=== PATIENT | male | born 1995 | race Caucasian/White ===

== ENCOUNTER 2018-09-21 08:19 | Day surgery (SDC) | payer OTHER, BC ==
[2018-09-21] MEDS ORDERED: Sodium Chloride 0.9% 10 ML Syringe FLUSH PRN (08:36)
[2018-09-21] MEDS ORDERED: Morphine 10 MG/ML Syringe IM ONE (08:36)
[2018-09-21] MEDS ORDERED: Sodium Chloride 0.9% 1,000 ML IV ONE (08:36)
[2018-09-21] MEDS ORDERED: Ondansetron 4 MG/2 ML SDV IVPUSH ONE ×2 (08:36→09:52)
[2018-09-21] MEDS ORDERED: Sodium Chloride 0.9% 2.5 ML Syringe FLUSH PRN (08:36)
--- NOTE | 2018-09-21 08:37 | EDM.PDOC ---
ED HPI GENERAL MEDICAL PROBLEM - General Chief Complaint: Abdominal Pain Stated Complaint: STOMACH PAIN Time Seen by Provider: 09/21/18 08:25 Source of Information: Reports: Patient History Limitations: Reports: No Limitations - History of Present Illness INITIAL COMMENTS - FREE TEXT/NARRATIVE: History of present illness: []Patient started having abdominal pain yesterday with nausea and vomiting. Pain is worsening and localized to his right side. He ate heavily and late last night and thought that it is his diet. He has had his gallbladder removed in the past. He denies any fevers or chills at this time. Review of systems: As per history of present illness and below otherwise all systems reviewed and negative. Past medical history: As per history of present illness and as reviewed below otherwise noncontributory. Surgical history: As per history of present illness and as reviewed below otherwise noncontributory. Social history: No reported history of drug or alcohol abuse. Family history: As per history of present illness and as reviewed below otherwise noncontributory. Physical exam: General: Well developed, well nourished in NAD HEENT: Atraumatic, normocephalic, pupils reactive, negative for conjunctival pallor or scleral icterus, mucous membranes moist, throat clear, neck supple, nontender, trachea midline. Lungs: Clear to auscultation, breath sounds equal bilaterally, chest nontender. Heart: S1S2, regular, negative for clicks, rubs, or JVD. Abdomen: NABS, Soft, nondistended, tender in right lower quadrant with rebound. Negative for masses or hepatosplenomegaly. Negative for costovertebral tenderness. Pelvis: Stable nontender. Genitourinary: Deferred. Rectal: Deferred. Extremities: Atraumatic, negative for cords or calf pain. Neurovascular unremarkable. Neuro: Awake, alert, oriented. Cranial nerves II through XII unremarkable. Cerebellum unremarkable. Motor and sensory unremarkable throughout. Exam nonfocal. Skin:warm and dry Diagnostics: CBC, chemistry, lipase, CT abdomen and pelvis Therapeutics: IV fluids, morphine, Zofran for pain, Zosyn ED Course: Patient remained stable with improvement in pain after medication Impression: Acute appendicitis Prescriptions: Plan: Admit to the OR to Dr. Michaels Definitive disposition and diagnosis as appropriate pending reevaluation and review of above. - Related Data Allergies Allergy/AdvReac Type Severity Reaction Status Date / Time No Known Allergies Allergy Verified 09/21/18 08:32 Home Meds: Home Meds . [No Known Home Meds] 09/21/18 [History] ED ROS GENERAL - Review of Systems Review Of Systems: ROS reveals no pertinent complaints other than HPI. ED EXAM, GI/ABD - Physical Exam Exam: See Below (See history of present illness) Course - Vital Signs Last Recorded V/S: Last Vital Signs Temp 96.7 F 09/21/18 08:30 Pulse 81 09/21/18 08:30 Resp 18 09/21/18 08:30 BP 135/80 09/21/18 08:30 Pulse Ox 99 09/21/18 08:30 - Orders/Labs/Meds Orders: Active Orders 24 hr Category Date Time Status Lactated Ringers [Ringers, Lactated] 1,000 ml Med 09/21/18 11:03 Active IV .BOLUS Sodium Chloride 0.9% [Saline Flush] Med 09/21/18 08:36 Active 10 ml FLUSH ASDIRECTED PRN Sodium Chloride 0.9% [Saline Flush] Med 09/21/18 08:36 Active 2.5 ml FLUSH ASDIRECTED PRN Saline Lock Insert [OM.PC] Stat Oth 09/21/18 08:35 Ordered Medication Orders Lactated Ringer's (Ringers, Lactated) 1,000 mls @ 999 mls/hr IV .BOLUS ONE Stop: 09/21/18 12:03 Last Admin: 09/21/18 11:30 Dose: 999 mls/hr Sodium Chloride (Saline Flush) 10 ml FLUSH ASDIRECTED PRN PRN Reason: Keep Vein Open Last Admin: 09/21/18 09:07 Dose: 10 ml Sodium Chloride (Saline Flush) 2.5 ml FLUSH ASDIRECTED PRN PRN Reason: Keep Vein Open Last Admin: 09/21/18 09:07 Dose: 2.5 ml Labs: Laboratory Tests 09/21/18 09/21/18 Range/Units 08:55 08:55 WBC 14.71 H (4.0-11.0) K/uL RBC 5.63 (4.50-5.90) M/uL Hgb 16.0 (13.0-17.0) g/dL Hct 44.9 (38.0-50.0) % MCV 79.8 L (80.0-98.0) fL MCH 28.4 (27.0-32.0) pg MCHC 35.6 (31.0-37.0) g/dL RDW Std Deviation 38.9 (28.0-62.0) fl RDW Coeff of Ernesto 14 (11.0-15.0) % Plt Count 337 (150-400) K/uL MPV 9.90 (7.40-12.00) fL Neut % (Auto) 80.4 H (48.0-80.0) % Lymph % (Auto) 13.7 L (16.0-40.0) % [place] % (Auto) 4.9 (0.0-15.0) % Eos % (Auto) 0.7 (0.0-7.0) % Baso % (Auto) 0.3 (0.0-1.5) % Neut # (Auto) 11.8 H (1.4-5.7) K/uL Lymph # (Auto) 2.0 (0.6-2.4) K/uL [place] # (Auto) 0.7 (0.0-0.8) K/uL Eos # (Auto) 0.1 (0.0-0.7) K/uL Baso # (Auto) 0.0 (0.0-0.1) K/uL Nucleated RBC % 0.0 /100WBC Nucleated RBCs # 0 K/uL Sodium 141 (136-148) mmol/L Potassium 4.2 (3.5-5.1) mmol/L Chloride 104 (98-107) mmol/L Carbon Dioxide 26.2 (21.0-32.0) mmol/L BUN 12 (7.0-18.0) mg/dL Creatinine 1.1 (0.8-1.3) mg/dL Est Cr Clr Drug Dosing 113.66 mL/min Estimated GFR (MDRD) > 60.0 ml/min Glucose 112 H (74-106) mg/dL Calcium 9.4 (8.5-10.1) mg/dL Total Bilirubin 1.1 H (0.2-1.0) mg/dL AST 22 (15-37) IU/L ALT 43 (14-63) IU/L Alkaline Phosphatase 41 L (46-116) U/L Total Protein 8.4 H (6.4-8.2) g/dL Albumin 4.3 (3.4-5.0) g/dL Globulin 4.1 H (2.6-4.0) g/dL Albumin/Globulin Ratio 1.1 (0.9-1.6) Lipase 85 (73-393) U/L Meds: Medications Generic Name Dose Route Start Last Admin Trade Name Freq PRN Reason Stop Dose Admin Lactated Ringer's 1,000 mls @ 999 mls/hr 09/21/18 11:03 09/21/18 11:30 Ringers, Lactated IV 09/21/18 12:03 999 mls/hr .BOLUS ONE Administration Sodium Chloride 10 ml 09/21/18 08:36 09/21/18 09:07 Saline Flush FLUSH 10 ml ASDIRECTED PRN Administration Keep Vein Open Sodium Chloride 2.5 ml 09/21/18 08:36 09/21/18 09:07 Saline Flush FLUSH 2.5 ml ASDIRECTED PRN Administration Keep Vein Open Discontinued Medications Generic Name Dose Route Start Last Admin Trade Name Freq PRN Reason Stop Dose Admin Hydromorphone HCl 0.5 mg 09/21/18 09:51 09/21/18 09:58 Dilaudid IVPUSH 09/21/18 09:52 0.5 mg ONETIME ONE Administration Sodium Chloride 1,000 mls @ 999 mls/hr 09/21/18 08:36 09/21/18 08:51 Normal Saline IV 09/21/18 09:36 999 mls/hr .Bolus ONE Administration Piperacillin Sod/Tazobactam 50 mls @ 100 mls/hr 09/21/18 11:02 09/21/18 11:30 Sod 3.375 gm/ Sodium Chloride IV 09/21/18 11:31 100 mls/hr ONETIME ONE Administration Iopamidol 100 ml 09/21/18 10:38 09/21/18 10:39 Isovue Multipack-370 (76%) IVPUSH 09/21/18 10:39 100 ml ONETIME ONE Administration Metoclopramide HCl 10 mg 09/21/18 09:25 09/21/18 10:28 Reglan IV 09/21/18 09:26 Not Given ONETIME ONE Morphine Sulfate 6 mg 09/21/18 08:36 09/21/18 08:51 Morphine IM 09/21/18 08:37 6 mg ONETIME ONE Administration Ondansetron HCl 4 mg 09/21/18 08:36 09/21/18 08:51 Zofran IVPUSH 09/21/18 08:37 4 mg ONETIME ONE Administration Ondansetron HCl 4 mg 09/21/18 09:52 09/21/18 09:58 Zofran IVPUSH 09/21/18 09:53 4 mg ONETIME ONE Administration Departure - Departure Time of Disposition: 11:43 Disposition: Home, Self-Care 01 Condition: Good Clinical Impression: Acute appendicitis Qualifiers: Acute appendicitis type: with localized peritonitis Appendicitis gangrene presence: without gangrene Appendicitis perforation presence: without perforation Appendicitis abscess presence: without abscess Qualified Code(s): K35.30 - Acute appendicitis with localized peritonitis, without perforation or gangrene - Discharge Information *PRESCRIPTION DRUG MONITORING PROGRAM REVIEWED*: No *COPY OF PRESCRIPTION DRUG MONITORING REPORT IN PATIENT FRANKIE: No - My Orders Last 24 Hours: My Active Orders 09/21/18 08:35 Saline Lock Insert [OM.PC] Stat 09/21/18 08:36 Sodium Chloride 0.9% [Saline Flush] 10 ml FLUSH ASDIRECTED PRN Sodium Chloride 0.9% [Saline Flush] 2.5 ml FLUSH ASDIRECTED PRN 09/21/18 11:03 Lactated Ringers [Ringers, Lactated] 1,000 ml IV .BOLUS - Assessment/Plan Last 24 Hours: My Active Orders 09/21/18 08:35 Saline Lock Insert [OM.PC] Stat 09/21/18 08:36 Sodium Chloride 0.9% [Saline Flush] 10 ml FLUSH ASDIRECTED PRN Sodium Chloride 0.9% [Saline Flush] 2.5 ml FLUSH ASDIRECTED PRN 09/21/18 11:03 Lactated Ringers [Ringers, Lactated] 1,000 ml IV .BOLUS
[2018-09-21] MEDS: Metoclopramide 10 MG/2 ML SDV IV ONE ×2 (09:32→10:28)
[2018-09-21 09:36] LABS: CHLORIDE,CL 104 mmol/L (98-107); SODIUM,NA 141 mmol/L (136-148)
[2018-09-21] MEDS ORDERED: HYDROmorphone 2 MG/ML Syringe IVPUSH ONE (09:51)
[2018-09-21] MEDS ORDERED: Iopamidol 755 MG/ML 500 ML Multipack Bottle IVPUSH ONE (10:38)
--- NOTE | 2018-09-21 10:58 | CT ---
CT of the abdomen and pelvis with contrast. HISTORY: Right lower quadrant pain TECHNIQUE: Axial CT images were obtained of the abdomen and pelvis following administration of 100 mL of Isovue-370 in the left antecubital fossa without complication. Coronal and sagittal reconstructions obtained. FINDINGS: The lung bases are clear, no pleural effusion. The liver, spleen, adrenal glands, and pancreas appear normal. Cholecystectomy clips are noted likely dilatation of a portion of the cystic duct. Common bile duct is normal in caliber. There is no bulky retroperitoneal lymphadenopathy or abdominal ascites. The kidneys enhance and function symmetrically without evidence of obstructive uropathy. The large and small bowel are normal in caliber without evidence of obstruction. No focal pericolonic inflammation or stranding. The appendix is enlarged measuring up to 11 mm with mild adjacent stranding. No evidence of perforation at this time. Urinary bladder is normal. No pelvic lymphadenopathy or free pelvic fluid. No suspicious osseous abnormalities identified. IMPRESSION: 1. Acute appendicitis without evidence of perforation. 2. Cholecystectomy with moderate prominence of the residual cystic duct
[2018-09-21] MEDS ORDERED: Piperacillin/Tazobactam 3.375 GM in Sodium Chloride 0.9% 50 ML IV ONE (11:02)
[2018-09-21] MEDS ORDERED: Lactated Ringers 1,000 ML IV ONE (11:03)
[2018-09-21] MEDS ORDERED: Midazolam 1 MG/ML 2 ML SDV ONE (11:44)
[2018-09-21] MEDS ORDERED: Lactated Ringers 1,000 ML IV SCH ×2 (11:45→14:15)
[2018-09-21] MEDS ORDERED: fentaNYL 100 MCG/2 ML SDV ONE ×2 (11:45→12:51)
[2018-09-21] MEDS ORDERED: Lidocaine 2% 100 MG/5 ML Syringe ONE (11:46)
[2018-09-21] MEDS ORDERED: Propofol 200 MG/20 ML SDV ONE (11:47)
[2018-09-21] MEDS ORDERED: Rocuronium 100 MG/10 ML Syringe ONE (11:48)
[2018-09-21] MEDS ORDERED: Scopolamine 1.5 MG Transdermal Patch TRDERM PRN (11:55)
[2018-09-21] MEDS ORDERED: HYDROmorphone 2 MG/ML SDV IVPUSH ONE ×2 (11:55→12:15)
[2018-09-21] MEDS ORDERED: Bupivacaine 0.25%/EPINEPHrine 1:200,000 10 ML SDV ONE (11:56)
--- NOTE | 2018-09-21 11:57 | PCM.PREANE ---
Preanesthetic Assessment - Anesthesia/Transfusion/Family Hx Anesthesia History: Prior Anesthesia Reaction Type of Anesthesia Reaction: Excessive Nausea/Vomiting Family History of Anesthesia Reaction: No - Review of Systems General: No Symptoms Pulmonary: No Symptoms Cardiovascular: No Symptoms Gastrointestinal: Abdominal Pain Neurological: No Symptoms Other: Reports: None - Physical Assessment NPO Status Date: 09/21/18 NPO Status Time: 07:00 O2 Sat by Pulse Oximetry: 96 Respiratory Rate: 18 Vital Signs: Last Vital Signs Temp 97.0 F 09/21/18 11:47 Pulse 64 09/21/18 11:47 Resp 18 09/21/18 11:47 BP 137/84 09/21/18 11:47 Pulse Ox 96 09/21/18 11:47 Height: 6 ft Weight: 111.13 kg ASA Class: 1E Mental Status: Alert & Oriented x3 Airway Class: Mallampati = 1 Dentition: Reports: Normal Dentition ROM/Head Extension: Full Lungs: Clear to Auscultation, Normal Respiratory Effort Cardiovascular: Regular Rate, Regular Rhythm - Lab Values: Laboratory Last Values WBC 14.71 K/uL (4.0-11.0) H 09/21/18 08:55 RBC 5.63 M/uL (4.50-5.90) 09/21/18 08:55 Hgb 16.0 g/dL (13.0-17.0) 09/21/18 08:55 Hct 44.9 % (38.0-50.0) 09/21/18 08:55 MCV 79.8 fL (80.0-98.0) L 09/21/18 08:55 MCH 28.4 pg (27.0-32.0) 09/21/18 08:55 MCHC 35.6 g/dL (31.0-37.0) 09/21/18 08:55 RDW Std Deviation 38.9 fl (28.0-62.0) 09/21/18 08:55 RDW Coeff of Ernesto 14 % (11.0-15.0) 09/21/18 08:55 Plt Count 337 K/uL (150-400) 09/21/18 08:55 MPV 9.90 fL (7.40-12.00) 09/21/18 08:55 Neut % (Auto) 80.4 % (48.0-80.0) H 09/21/18 08:55 Lymph % (Auto) 13.7 % (16.0-40.0) L 09/21/18 08:55 [place] % (Auto) 4.9 % (0.0-15.0) 09/21/18 08:55 Eos % (Auto) 0.7 % (0.0-7.0) 09/21/18 08:55 Baso % (Auto) 0.3 % (0.0-1.5) 09/21/18 08:55 Neut # (Auto) 11.8 K/uL (1.4-5.7) H 09/21/18 08:55 Lymph # (Auto) 2.0 K/uL (0.6-2.4) 09/21/18 08:55 [place] # (Auto) 0.7 K/uL (0.0-0.8) 09/21/18 08:55 Eos # (Auto) 0.1 K/uL (0.0-0.7) 09/21/18 08:55 Baso # (Auto) 0.0 K/uL (0.0-0.1) 09/21/18 08:55 Nucleated RBC % 0.0 /100WBC 09/21/18 08:55 Nucleated RBCs # 0 K/uL 09/21/18 08:55 Sodium 141 mmol/L (136-148) 09/21/18 08:55 Potassium 4.2 mmol/L (3.5-5.1) 09/21/18 08:55 Chloride 104 mmol/L (98-107) 09/21/18 08:55 Carbon Dioxide 26.2 mmol/L (21.0-32.0) 09/21/18 08:55 BUN 12 mg/dL (7.0-18.0) 09/21/18 08:55 Creatinine 1.1 mg/dL (0.8-1.3) 09/21/18 08:55 Est Cr Clr Drug Dosing 113.66 mL/min 09/21/18 08:55 Estimated GFR (MDRD) > 60.0 ml/min 09/21/18 08:55 Glucose 112 mg/dL (74-106) H 09/21/18 08:55 Calcium 9.4 mg/dL (8.5-10.1) 09/21/18 08:55 Total Bilirubin 1.1 mg/dL (0.2-1.0) H 09/21/18 08:55 AST 22 IU/L (15-37) 09/21/18 08:55 ALT 43 IU/L (14-63) 09/21/18 08:55 Alkaline Phosphatase 41 U/L (46-116) L 09/21/18 08:55 Total Protein 8.4 g/dL (6.4-8.2) H 09/21/18 08:55 Albumin 4.3 g/dL (3.4-5.0) 09/21/18 08:55 Globulin 4.1 g/dL (2.6-4.0) H 09/21/18 08:55 Albumin/Globulin Ratio 1.1 (0.9-1.6) 09/21/18 08:55 Lipase 85 U/L (73-393) 09/21/18 08:55 - Allergies Allergies/Adverse Reactions: Allergies Allergy/AdvReac Type Severity Reaction Status Date / Time No Known Allergies Allergy Verified 09/21/18 08:32 - Blood Blood Available: No - Anesthesia Plan Pre-Op Medication Ordered: Other (scop patch and dilaudid in pre op holding. Abx in ED) - Acknowledgements Anesthesia Type Planned: General Anesthesia Pt an Appropriate Candidate for the Planned Anesthesia: Yes Alternatives and Risks of Anesthesia Discussed w Pt/Guardian: Yes Pt/Guardian Understands and Agrees with Anesthesia Plan: Yes PreAnesthesia Questionnaire - Past Health History Medical/Surgical History: Denies Medical/Surgical History - SUBSTANCE USE Tobacco Use Within Last Twelve Months: Snuff/Dip Recreational Drug Use History: No - HOME MEDS Home Medications: Home Meds . [No Known Home Meds] 09/21/18 [History] - CURRENT (IN HOUSE) MEDS Current Meds: Current Medications Lactated Ringer's (Ringers, Lactated) 1,000 mls @ 999 mls/hr IV .BOLUS ONE Stop: 09/21/18 12:03 Last Admin: 09/21/18 11:30 Dose: 999 mls/hr Lactated Ringer's (Ringers, Lactated) 1,000 mls @ 150 mls/hr IV ASDIRECTED PERDO Sodium Chloride (Saline Flush) 10 ml FLUSH ASDIRECTED PRN PRN Reason: Keep Vein Open Last Admin: 09/21/18 09:07 Dose: 10 ml Sodium Chloride (Saline Flush) 2.5 ml FLUSH ASDIRECTED PRN PRN Reason: Keep Vein Open Last Admin: 09/21/18 09:07 Dose: 2.5 ml Discontinued Medications Fentanyl (Sublimaze) Confirm Administered Dose 100 mcg .ROUTE .STK-MED ONE Stop: 09/21/18 11:46 Hydromorphone HCl (Dilaudid) 0.5 mg IVPUSH ONETIME ONE Stop: 09/21/18 09:52 Last Admin: 09/21/18 09:58 Dose: 0.5 mg Sodium Chloride (Normal Saline) 1,000 mls @ 999 mls/hr IV .Bolus ONE Stop: 09/21/18 09:36 Last Admin: 09/21/18 08:51 Dose: 999 mls/hr Piperacillin Sod/Tazobactam (Sod 3.375 gm/ Sodium Chloride) 50 mls @ 100 mls/ hr IV ONETIME ONE Stop: 09/21/18 11:31 Last Admin: 09/21/18 11:30 Dose: 100 mls/hr Iopamidol (Isovue Multipack-370 (76%)) 100 ml IVPUSH ONETIME ONE Stop: 09/21/18 10:39 Last Admin: 09/21/18 10:39 Dose: 100 ml Lidocaine HCl (Xylocaine 2%) Confirm Administered Dose 100 mg .ROUTE .STK-MED ONE Stop: 09/21/18 11:47 Metoclopramide HCl (Reglan) 10 mg IV ONETIME ONE Stop: 09/21/18 09:26 Last Admin: 09/21/18 10:28 Dose: Not Given Midazolam HCl (Versed 1 Mg/Ml) Confirm Administered Dose 2 mg .ROUTE .STK-MED ONE Stop: 09/21/18 11:45 Morphine Sulfate (Morphine) 6 mg IM ONETIME ONE Stop: 09/21/18 08:37 Last Admin: 09/21/18 08:51 Dose: 6 mg Ondansetron HCl (Zofran) 4 mg IVPUSH ONETIME ONE Stop: 09/21/18 08:37 Last Admin: 09/21/18 08:51 Dose: 4 mg Ondansetron HCl (Zofran) 4 mg IVPUSH ONETIME ONE Stop: 09/21/18 09:53 Last Admin: 09/21/18 09:58 Dose: 4 mg Propofol (Diprivan 20 Ml) Confirm Administered Dose 200 mg .ROUTE .STK-MED ONE Stop: 09/21/18 11:48 Rocuronium [place]inson (Zemuron) Confirm Administered Dose 100 mg .ROUTE .STK-MED ONE Stop: 09/21/18 11:49
[2018-09-21] MEDS ORDERED: Ondansetron 4 MG/2 ML SDV ONE ×2 (12:26→13:02)
[2018-09-21] MEDS ORDERED: Dexamethasone 4 MG/ML 5 ML MDV ONE (12:37)
[2018-09-21] MEDS ORDERED: Neostigmine Methylsulfate 1 MG/ML 5 ML Syringe ONE (13:03)
--- NOTE | 2018-09-21 13:41 | PCM.OPNOTE ---
- General Post-Op/Procedure Note Date of Surgery/Procedure: 09/21/18 Operative Procedure(s): lap appy Findings: appy was big, dilated, hyperemic, indurated, and hard like a rock, and severely interact w surrounding suggested infection for a while, gross perf no observed; [id number] Pre Op Diagnosis: acute appendicitis Post-Op Diagnosis: Same Anesthesia Technique: General ET Tube Primary Surgeon: Rahul Michaels Pathology: sent Complications: None Condition: Fair
[2018-09-21] MEDS ORDERED: Ketorolac 30 MG/ML SDV ONE (13:44)
[2018-09-21] MEDS ORDERED: Acetaminophen/oxyCODONE 325-5 MG Tab PO PRN (14:03)
[2018-09-21] MEDS ORDERED: Ondansetron 4 MG/2 ML SDV IVPUSH PRN (14:12)
--- NOTE | 2018-09-21 14:18 | PCM.POSTAN ---
POST ANESTHESIA ASSESSMENT - MENTAL STATUS Mental Status: Alert, Oriented - RESPIRATORY Respiratory Status: Respiratory Rate WNL, Airway Patent, O2 Saturation Stable - CARDIOVASCULAR CV Status: Pulse Rate WNL, Blood Pressure Stable - GASTROINTESTINAL GI Status: No Symptoms - POST OP HYDRATION Hydration Status: Adequate & Stable
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
--- NOTE | 2018-09-22 12:09 | OR ---
SURGEON: Rahul Michaels MD DATE OF PROCEDURE: 09/21/2018 PREOPERATIVE DIAGNOSIS: Acute appendicitis. POST PROCEDURE DIAGNOSIS: Acute appendicitis. PROCEDURE PERFORMED: Laparoscopic appendectomy. COMPLICATIONS: None. FINDINGS: Appendix is dilated and hyperemic, indurated, and hard like a rock. Gross perforation is not observed. DESCRIPTION OF PROCEDURE: The patient was taken to the operating room and placed in the supine position. Following induction of general endotracheal anesthesia, the patient's abdomen was prepped and draped in the sterile fashion. A time-out has been called. The patient was identified. The procedure was identified. The antibiotics were identified. The procedure then proceeded. The abdomen was prepped and draped in a standard fashion. After assessment of appropriate landmarks, a 12 millimeter trocar was inserted supraumbilically using Optiview and pneumoperitoneum was then achieved. This was followed with placement of 5 millimeter port in the right upper quadrant and another 5 millimeter port infraumbilically. The camera was inserted supraumbilical site and two laparoscopic Tila retractors were then inserted through the other two sites. Following the cecum, the appendix was located. The appendix was then lifted up, and using a GI stapler the appendix was amputated at the base. And using the GI stapler, the mesoappendix was then amputated. The appendix was retrieved by an endoscopic bag and sent for pathologist. This was then followed by re-insertion of the camera to examine the staple line, and hemostasis. The trocars were then removed. The umbilical site was closed with 2-0 Vicryl deep stitch and 4 -0 Vicryl and Dermabond; the other 2 5 mm port sites were closed with 4-0 Vicryl and Dermabond. The patient was then awakened, extubated, and transferred to the recovery room in hemodynamically stable condition. Prior to closing, sponge count and instrument count was correct. Dr. Michaels was present throughout the whole procedure. At the conclusion of surgery, surgicell was inserted for hemostasis and again gross perforation not observed. As always, thank you for the kind referral. SALVATORE / HEIKE /[id number] NABOR
== END 2018-09-21 19:10 | disposition home or self-care (01) ==
LOC: MW.ED 08:19 → MW.SDS 11:33 → MW.MS 14:05 → MW.SDS 19:10
PROVIDERS: ATTEND Surgery
DX: K35.80 Unspecified acute appendicitis (principal)
CPT/HCPCS: 36415; 44970; 74177; 80053; 83690; 85025; 96361; 96374; 96375; 96376; 99285; A9270; C1776; J1100; J1170; J1885; J2001; J2250; J2270; J2405; J2543; J2704; J3010; J3490; J7040; J7050; J7120; Q9967; J2765